=== PATIENT | male | born 1990 | race Hispanic/Latino ===

== ENCOUNTER 2016-11-24 04:32 | Observation (INO) | payer SELFPAY ==
[~2016-11-24] VITALS: Ht 154.9 cm; Wt 131.3 kg
[2016-11-24] VITALS (17 sets, daily range): BP systolic 120–149; BP diastolic 57–94; PULSE 79–113; RESP 16–30; O2SAT 91–98
[~2016-11-24 04:32] MED LIST: IBUP800T28 PO; OXYC1TAB24 PO
--- NOTE | 2016-11-24 05:17 | ED.REPORT ---
HPI-Abd Pain M Under 40 Date of Service Nov 24, 2016 ED Provider: Francisco Crain MD History of Present Illness: Harshad Nagel is a 26 year old obese man with an otherwise negative medical history who presents with a 5 hour history of RLQ abdominal pain that came on suddenly while he was asleep. He states that earlier today he was in his normal state of health, and that he had not eaten anything out of the orginary recently. He denies nausea, vomiting, diarrhea, or constipation. He describes the pain as very sharp and localized to the RLQ without radiation. Nursing Notes Stated Complaint: RIGHT SIDED ABDOMINAL PAIN Chief Complaint: Male Abdominal Pain Nursing Notes Reviewed: Yes Allergies: Coded Allergies: Penicillins (Verified Allergy, Unknown, 11/24/16) Scheduled PRN Ibuprofen (Ibuprofen) 800 Mg Tablet 800 MG PO TID PRN PRN For Pain oxyCODONE-Acetaminophen 5-325 mg (oxyCODONE-Acetaminophen 5-325 mg) 1 Each Tablet 1 TAB PO Q4H PRN PRN For Pain General Time Seen by MD: 05:05 Chief Complaint Abdominal pain Hx Obtained From: Patient Onset Occurred: 5 - 8 hours ago Symptom Duration: Since onset Progression since Onset: Unchanged Location: : Abdomen lower: RLQ Quality: Sharp Radiation: : Does not radiate Severity: Current: Moderate Severity: Maximum: Severe Recent Healthcare: No recent doctor visit Similar Sx Previous: No Past Medical History Past Medical History Denies Past Surgical History Denies Family History noncontributory Smoking History Never Smoker Social History Alcohol Use: "Social" Drug Use: Denies drug use Other Social History: Local resident Occupation lives by self Ambulatory Status Independent Review of Systems GI: Reports: Abdominal pain Physical Exam Physical Exam Notes: Gen: A/O x3 pleasant cooperative man in mild acute distress secondary to abdominal pain Neck: Large bull neck, no JVD, supple, full ROM HEENT: PERRL, EOMI, mucous membranes moist CV: RRR, no murmurs rubs or gallops Resp: Lungs CTA BL, no wheezing rales or rhonchi Abdomen: Obese, soft, tender to palpation in RLQ McBurney's point, no rebound tenderness, psoas and obturator sign negative, BS +4Q Extr: No cyanosis clubbing or edema Neuro: Cn 2-12 grossly intact, no focal neurologic deficit Initial Vital Signs Vital Signs (First) Date Time Temp Pulse Resp B/P Pulse Ox O2 Delivery O2 Flow Rate FiO2 11/24/16 04:36 36.7 94 16 146/93 97 Room Air Initial VS: Reviewed Interpretation & Diagnostics Lab Results Interpretation Result Diagram: 11/24/16 0530 Test 11/24/16 05:15 11/24/16 05:30 Hold Urine Received (Received) White Blood Count 16.8th/mm3 (3.8-10.1) Red Blood Count 5.53mil/mm3 (4.40-5.80) Hemoglobin 14.7g/dL (13.8-17.2) Hematocrit 44.3% (41.0-50.0) Mean Corpuscular Volume 80.1fL (81-100) Mean Corpuscular Hemoglobin 26.6pg (27.0-35.0) Mean Corpuscular Hemoglobin Concent 33.2% (32.0-37.0) Red Cell Distribution Width 14.4% (12.3-15.4) Platelet Count 287bil/L (150-400) Neutrophils (%) (Auto) 79.1% (40-74) Lymphocytes (%) (Auto) 13.2% (14-46) Monocytes (%) (Auto) 6.3% (4-12) Eosinophils (%) (Auto) 0.9% (0-5) Basophils (%) (Auto) 0.3% (0-3) Re-Eval/Medical Decision Med Decision/Clinical Course This is a patient with very focal RLQ abdominal pain with sudden onset concerning for acute appendicitis. Given his habitus an US is unlikely to reveal the relevant anatomy, thus we will await preliminary lab work and likely conduct an abdominal CT to evaluate for potential Appendix pathology. He is patient and in a tolerable amount of pain without actively seeking analgesia. CBC reveals significant leukocytosis with Neutrophilic shift, thus CT was ordered. Differential Diagnosis: Positive: Appendicitis Patient Discharge & Departure Primary Impression: Abdominal pain Abdominal location: right lower quadrant Qualified Code: R10.31 - Right lower quadrant pain Discharge Condition All VS Reviewed: Yes Condition: Stable Referrals: NOPCP (PCP) Care Transferred to: Dr. Crason Care Transferred at: 06:00 Attending Statement The patient was seen and examined together with Dr. Yobani Lacey and I agree with the history, exam and plan as outlined in the note above. Yobani Lacey DO Nov 24, 2016 05:10 Francisco Crain MD Nov 24, 2016 06:20
[2016-11-24 05:46] LABS: BASOPHILS % (AUTO) 0.3 % (0-3); EOSINOPHILS % (AUTO) 0.9 % (0-5); MONOCYTES % (AUTO) 6.3 % (4-12); Mean Corpuscular Hemoglobin 26.6 pg (27.0-35.0); Mean Corpuscular Volume 80.1 fL (81-100); NEUTROPHILS % (AUTO) 79.1 % (40-74); Platelet Count 287 bil/L (150-400)
[2016-11-24 06:12] LABS: Magnesium 1.9 mg/dL (1.6-2.6)
[2016-11-24 06:42] LABS: APPEARANCE,URINE CLEAR (CLEAR,HAZY); COLOR,URINE YELLOW (YELLOW); OCCULT BLOOD,URINE TRACE (NEGATIVE); UROBILINOGEN,URINE NORMAL (NORMAL)
[2016-11-24] MEDS ORDERED: Ondansetron 2 mg/mL 2 mL Inj IVPUSH PRN ×3 (07:10→13:25)
[2016-11-24] MEDS: HYDROmorphone 0.5 mg/0.5 mL iSecure Syringe IVPUSH PRN ×2 (07:17→09:40)
[2016-11-24] MEDS ORDERED: Rocuronium 10 mg/mL 5 mL Inj ONE (09:14)
[2016-11-24] MEDS ORDERED: Succinylcholine Chloride 20 mg/mL 5 mL Inj ONE (09:14)
[2016-11-24] MEDS ORDERED: Ondansetron 2 mg/mL 2 mL Inj ONE (09:14)
[2016-11-24] MEDS ORDERED: Neostigmine 1 mg/mL 10 mL Inj ONE (09:14)
[2016-11-24] MEDS ORDERED: Dexamethasone 4 mg/mL Inj ONE (09:14)
[2016-11-24] MEDS ORDERED: Glycopyrrolate 0.2 MG/ML 1mL Inj ONE (09:14)
[2016-11-24] MEDS ORDERED: Phenylephrine/NS-PF 100 mCg/mL 5 mL Syringe IVPUSH ONE (09:14)
[2016-11-24] MEDS ORDERED: Remifentanil 1 mg/3 mL Inj ONE (09:14)
[2016-11-24] MEDS ORDERED: Propofol 10,000 mCg/mL 20 mL Inj ONE (09:14)
[2016-11-24] MEDS ORDERED: fentaNYL-PF 50 mCg/mL 2 mL Inj ONE (09:14)
[2016-11-24] MEDS ORDERED: Ciprofloxacin Inj 400 MG in IV Premix 1 EACH IV ONE (09:20)
[2016-11-24] MEDS ORDERED: metroNIDAZOLE Inj 500 MG in IV Premix 1 EACH IV ONE (09:20)
--- NOTE | 2016-11-24 09:43 | DRSVH ---
PROCEDURE: CT ABDOMEN AND PELVIS WITH CONTRAST ([id number]) INDICATIONS: RLQ abdominal pain TECHNIQUE: After the administration of intravenous contrast, 5 mm thick sections acquired from the diaphragm to the symphysis. 5 mm coronal and sagittal reformats were acquired. For radiation dose reduction, the following was used: automated exposure control, adjustment of mA and/or kV according to patient siz e. COMPARISON: None. FINDINGS: Image quality: Excellent. ABDOMEN: Lung bases: Lung bases are clear. Heart size is normal. Solid organs: Liver is enlarged, measuring 21.8 cm craniocaudal, and demonstrates diffusely decrease d density, indicating fatty infiltration. Hepatosplenic enhancement is within normal limits. Gallblad jeanie is within normal limits. Biliary system is non dilated. Pancreas enhances normally. No right a drenal nodules. A 37 mm diameter left adrenal nodule is present, with Hounsfield units of 42.5 follow ing intravenous contrast administration, which is indeterminate. Kidneys demonstrate normal size and enhancement, without hydronephrosis. Peritoneum and bowel: Bowel loops demonstrate normal wall thickness and caliber. No free fluid or a ir. The appendix is mildly distended and fluid-filled, and demonstrates mild surrounding groundglass density. Nodes and vessels: No retroperitoneal or mesenteric adenopathy by size criteria. Aorta and inferior vena cava are normal in size. Miscellaneous: No ventral hernias. PELVIS: Genitourinary: Bladder wall thickness is normal. Miscellaneous: No inguinal hernias or adenopathy. Bones: No suspicious bony lesions. No vertebral body compression fractures. IMPRESSION: 1. Mild/early appendicitis. 2. Indeterminate left adrenal lesion, which could be further assessed with MRI, if clinically indicat ed. 3. Hepatic steatosis. Dictated by: Jt Young M.D. on 11/24/2016 at 9:38 Approved by: Jt Young M.D. on 11/24/2016 at 9:41
[2016-11-24] MEDS ORDERED: levoFLOXacin Inj 500 MG in IV Premix 1 EACH IV ONE (10:01)
[2016-11-24] MEDS ORDERED: HYDROmorphone 1 mg/mL Inj IVPUSH PRN ×2 (10:10→13:25)
[2016-11-24] MEDS ORDERED: Acetaminophen IV 1,000 MG in IV Premix 1 EACH IV PRN (10:10)
--- NOTE | 2016-11-24 10:47 | NUR ---
Arrival to 1002 Pt arrival at 1045. Pain rated 4/10 which is greatly improved from 12/10 he experienced in ER. Denies nausea. Plan for surgery at [address] Lin. Friends and family at bedside. Flagyl complete and Levofloxacin started. Consent is in front of chart and has not been signed.
--- NOTE | 2016-11-24 12:16 | NUR ---
To OR Pt taken to OR at 1145. Pt was sleeping comfortably prior to transport with Levofloxacin infusing. Family at bedside.
[2016-11-24] MEDS ORDERED: Bupivacaine-MPF 0.25%/EPI 30 mL Inj INJ ONE (12:18)
[2016-11-24] MEDS ORDERED: Lactated Ringer's 1,000 ML IV ONE ×2 (12:18→13:56)
--- NOTE | 2016-11-24 13:20 | HP ---
[address] [address] HISTORY AND PHYSICAL PATIENT: EMANUEL LOVETT : 1990 MR#: [id number] ADMIT: 11/24/2016 JOB ID: [id number] CORRECTED REPORT: DATE OF SERVICE: 11/24/2016 REASON FOR CONSULTATION: The patient is seen in consultation at the request of Dr. Yobani Lacey regarding further evaluation and management of possible acute appendicitis. HISTORY OF PRESENT ILLNESS: The patient is a 26-year-old obese but otherwise healthy man who presented to the emergency department with a complaint of right lower quadrant abdominal pain. He tells me that the pain began around midnight last night. He describes it as intense constant and dissimilar to anything he has experienced before. The pain was not accompanied by fevers, chills, nausea, vomiting, or night sweats. Because the pain persisted he presented to the emergency department, where he was found to have a leukocytosis of 16.8. CT scan of the abdomen and pelvis was obtained, which I have personally reviewed, and demonstrates a mildly distended and fluid-filled appendix with mild surrounding fat stranding. Incidentally, he is also noted to have a 3.7 cm left adrenal nodule. The patient denies any history of symptoms suggestive of pheochromocytoma. There is no family history suggestive of any MEN syndromes. PAST MEDICAL HISTORY: Obesity. MEDICATIONS: None. ALLERGIES: PENICILLIN. PAST SURGICAL HISTORY: He had a birthmark removed from his head. FAMILY HISTORY: Reviewed and unremarkable. SOCIAL HISTORY: He lives in [place]. He owns a variety of different companies. He does not smoke. He does not drink alcohol. He does not use any illicit drugs. PHYSICAL EXAMINATION: He has remained afebrile since his presentation. Currently temperature is 36.8 degrees, heart rate 79 beats per minute, blood pressure is 143/82, satting 95% on room air with respiratory rate 18 breaths per minute. In general he appears comfortable, in no acute distress. Cardiovascular: Regular rate and rhythm. No appreciated murmurs, rubs, gallops. Pulmonary: His lungs are clear to auscultation bilaterally. Vascular: He has no carotid bruit. Neck has no thyromegaly. Lymph: He has no cervical lymphadenopathy. GI: His abdomen is soft, nondistended. He has focal tenderness to palpation in the right lower quadrant. Extremities: Warm, without significant edema. Skin: Warm, without rash. Neuro: Grossly intact. Psych: Pleasant appropriate. LABORATORIES: His white blood cell count was 16.8, his hematocrit was 44.3, his creatinine was 0.66. LFTs are totally normal. Urine is unremarkable. IMAGING: CT scan is personally reviewed and is as per the HPI. ASSESSMENT AND PLAN: This is a 26-year-old man with what seems to be early acute appendicitis, as well as an incidental left adrenal mass. I discussed the diagnosis of appendicitis with the patient and my recommendation for laparoscopic appendectomy. The technical and convalescent aspects of surgery were reviewed, as well as the potential risks and complications. The patient agrees to proceed with surgery. I also briefly discussed his adrenal mass. He will require further evaluation of this as an outpatient. I also reviewed this with the anesthesiologist in the rare event that this could represent a pheochromocytoma. The patient be taken to the operating room imminently. Corrected by MEGA 12/09/16 at 11:46am Report type.
[2016-11-24] MEDS ORDERED: Lactated Ringer's 1,000 ML IV SCH (13:22)
[2016-11-24] MEDS ORDERED: Lactated Ringer's 500 ML IV PRN (13:22)
--- NOTE | 2016-11-24 13:22 | PCM.HPANE ---
Patient Data Surgeon Admitting Provider:Emory Lin MD Attending Provider:Emory Lin MD Primary Care Physician:Nopcp Other Provider: Reason for Visit APPY Ht/WT & BMI Height (Feet): 5 Height (Inches): 1.00 Weight (Kilograms): 131.300 Body Mass Index 54.65 Allergies Coded Allergies: Penicillins (Verified Allergy, Unknown, 11/24/16) Past Anesthesia History Anesthesia History: Denies:: Anesthesia Reactions Diabetes History Hx Diabetes?: No MRSA MRSA: No Medications Hypertension Medication: No Home Meds Incl Beta Marshall: No Active Scripts oxyCODONE-Acetaminophen 5-325 mg 1 Each Tablet1 Tab PO Q4H PRN For Pain #10 TABLET Ref 0 Prov:Hayley Hernandez MD 09/18/15 Ibuprofen 800 Mg [id number] Mg PO TID PRN For Pain #20 TABLET Ref 0 Prov:Hayley Hernandez MD 09/18/15 History History of ENT Problems?: No HEENT History: Denies:: Cataracts Glaucoma Sinus Problem Hx of Heart Problems?: Yes Cardiovascular History: Positive for:: Hypertension Denies:: Cardiac Surgery Chest Pain Congestive Heart Failure Edema Heart Murmur Irregular Heartbeat Pacemaker Thrombophlebitis Other Cardiac History: minor stroke r/t redbull per patient. NO residual symptoms of CVA. Endorses occasional palpitations and diaphoresis unrelated to activity. Hx of Respiratory Problem?: No Respiratory History: Denies:: Asthma COPD Chest Surgery Dyspnea Emphysema Hemoptysis Pneumonia Tuberculosis Hx Neurologic Problems?: Yes Neurological History: Positive for:: CVA (Possible CVA vs TIA on 04/17/14) Headaches (Hx of Migrane H/A's; last occured one month ago) Denies:: Alzheimer's Disease Dementia Dizziness Parkinson's Disease Seizures Hx of GI Problems?: No Other GI Pertinent History: currently pain on right stomach Hx of Problems?: No Other Pertinent History: Incidental adrenal lesion seen on CT. (LEFT) Male Hx: Denies:: Prostate Problems Scrotal Mass Testicular Surgery Hx Musculoskeletal Problems?: Yes Musculoskeletal History: Positive for:: Back Injury (previous fall off ladder with back injury.) Denies:: Joint Replacement Musculoskeletal Trauma Hx of Psycho/Social Problems?: No Psycho Social History: Denies:: Anxiety Bipolar Disorder Hx Depression Suicide Attempt Hx Surgeries?: Yes (Pt had surgery on his head when he was 5 years old) Hx Any Other Health Problems?: No Other History: Positive for:: Hospitalization Denies:: Cancer Endocrine Disease Thyroid Disease History Blood Transfusions: Positive for:: Accept Blood Products? Denies:: Blood Transfusions Hx Diabetes: No Hx Alcohol Use: NoHx Substance Use: No Smoking Status: Never Smoker Have You Smoked inLast 12 mo: No Stop/Bang Treated for Sleep Apnea?: No Do You Have a CPAP Machine?: No S-Snoring: Do You Snore Loudly: Yes T-Tired: feel tired, fatigued: No P-Blood Pressure: treated: No B- Body Mass Index > 35 kg/m2: Yes A- Age over 50: No N- Neck Large Circumference: Yes G- Gender Male: Yes HELIO Risk Assessment: High Risk, =/>3 Yes Risk Assessment Category Category 1A: Patient has history of documented sleep apnea, and HAS NOT received any narcotic, sedative or anesthesia administration during this stay. Category 1B: Patient has history of documented sleep apnea, and HAS received any narcotic , sedative or anesthesia administration during this stay Category 2: Patient has SUSPECTED Obstructive Sleep Apnea, and HAS received any narcotic , sedative or anesthesia administration during this stay. Category 3: Patient has SUSPECTED Obstructive Sleep Apnea and HAS NOT received narcotic, sedative or anesthesia administration during this stay. Category 4: Outpatient in Procedural Areas with known sleep apnea or who screen positive for High Risk via the STOP/BANG questionnaire. Exam Exam Vital Signs Vital Signs Date Time Temp Pulse Resp B/P Pulse Ox O2 Delivery O2 Flow Rate FiO2 11/24/16 10:37 36.8 79 18 143/82 95 Room Air 11/24/16 10:10 36.7 94 18 131/65 97 Room Air 11/24/16 07:43 94 18 131/65 97 Room Air 11/24/16 04:36 36.7 94 16 146/93 97 Room Air General Appearance: Alert, Oriented X3, Cooperative, No Acute Distress HEENT/AIRWAY: MP 2 Lungs: Clear to Auscultation, Normal Air Movement Heart: Exam Unremarkable, Regular Rate/Rhythm, No Murmurs/Rubs/Gallops Meds/Labs/Diagnostics Admission Meds Current Medications Ketorolac Tromethamine 30 mg 30 mg ONCE ONCE IVPUSH Last administered on t 07:17; Start 11/24/16 at 07:10; Stop 11/24/16 at 07:11; Status DC Metronidazole/ Sodium Chloride 500 mg/Premix 100 ml @ 200 mls/hr ONCE ONCE IV Last administered on 11/24/16 09:40; Start 11/24/16 at 09:20; Stop 11/24/16 at 09:49; Status DC Levofloxacin/ Dextrose/Premix (Levaquin Inj/IV Premix) 100 ml @ 100 mls/hr ONCE ONCE IV Last administered on 11/24/16 10:43; Start 11/24/16 at 10:01; Stop 11/24/16 at 11:00 Labs Test 11/24/16 05:15 11/24/16 05:30 Urine Color Yellow (YELLOW) Urine Appearance Clear (CLEAR,HAZY) Urine pH 7.0 (5.0-8.0) Urine Specific Henry 1.020 (1.003-1.035) Urine Protein Negativemg/dL (NEG,TRACE) Urine Glucose (UA) Negativemg/dL (NEGATIVE) Urine Ketones Negativemg/dL (NEGATIVE) Urine Occult Blood Trace (NEGATIVE) Urine Nitrite Negative (NEGATIVE) Urine Bilirubin Negative (NEGATIVE) Urine Urobilinogen Normalmg/dL (NORMAL) Urine Leukocyte Esterase Negative (NEGATIVE) Urine RBC 0-2/hpf (0-2) Urine WBC 0-5/hpf (0-5) Urine Epithelial Cells Occasional/hpf (NONE-MOD) Urine Crystals None seen (NONE SEEN) Urine Bacteria None/hpf (NONE-FEW) Urine Hyaline Casts None/lpf (NONE) Urine Granular Casts None seen (NONE SEEN) Urine Waxy Casts None seen (NONE SEEN) Urine Red Blood Cell Casts None seen (NONE SEEN) Urine White Blood Cell Casts None seen (NONE SEEN) Urine Mucus Present (None Seen) Urine Trichomonas None seen (NONE SEEN) Urine Yeast None (NONE SEEN) Urine Culture Reflexed Not indicated Hold Urine Received (Received) White Blood Count 16.8th/mm3 (3.8-10.1) Red Blood Count 5.53mil/mm3 (4.40-5.80) Hemoglobin 14.7g/dL (13.8-17.2) Hematocrit 44.3% (41.0-50.0) Mean Corpuscular Volume 80.1fL (81-100) Mean Corpuscular Hemoglobin 26.6pg (27.0-35.0) Mean Corpuscular Hemoglobin Concent 33.2% (32.0-37.0) Red Cell Distribution Width 14.4% (12.3-15.4) Platelet Count 287bil/L (150-400) Neutrophils (%) (Auto) 79.1% (40-74) Lymphocytes (%) (Auto) 13.2% (14-46) Monocytes (%) (Auto) 6.3% (4-12) Eosinophils (%) (Auto) 0.9% (0-5) Basophils (%) (Auto) 0.3% (0-3) Sodium Level 138mEq/L (134-144) Potassium Level 3.6mEq/L (3.5-5.2) Chloride Level 101mEq/L (97-108) Carbon Dioxide Level 22mmol/L (18-29) Blood Urea Nitrogen 12mg/dL (6-20) Creatinine 0.66mg/dL (0.76-1.27) Estimat Glomerular Filtration Rate 153mL/min (>59) Glucose Level 114mg/dL (60-99) Calcium Level 8.3mg/dL (8.5-10.1) Magnesium Level 1.9mg/dL (1.6-2.6) Total Bilirubin 0.3mg/dL (0.0-1.2) Aspartate Amino Transf (AST/SGOT) 24U/L (0-50) Alanine Aminotransferase (ALT/SGPT) 36U/L (0-44) Alkaline Phosphatase 73U/L (25-150) Total Protein 7.5g/dL (6.4-8.4) Albumin 4.1g/dL (3.4-5.0) Lipase 19U/L (13-60) Hold [place] Top Tube Received (Received) Plan Impression Patient chart reviewed, patient interviewed and anesthestic plan with risks, benefits, and alternatives discussed, and informed consent obtained. ASA Physical Status: ASA3 Plus Emergency Anesthetic Support Modalities: [place] Scope (available) Anesthetic Plan: GA Bene/Risks/Altern/Consents: Yes HP Complete Prior to Induction: Yes Rei Paulino MD Nov 24, 2016 11:00
[2016-11-24] MEDS ORDERED: fentaNYL-PF 50 mCg/mL 2 mL Inj IVPUSH PRN (13:25)
[2016-11-24] MEDS ORDERED: Atropine 0.4 mg/mL Inj IVPUSH PRN (13:25)
[2016-11-24] MEDS ORDERED: Phenylephrine 10,000 mCg/mL Inj IVPUSH PRN (13:25)
[2016-11-24] MEDS ORDERED: Labetalol 5 mg/mL 4 mL Inj IV PRN (13:25)
[2016-11-24] MEDS ORDERED: EPHEDrine Sulfate 50 mg/mL Inj IVPUSH PRN (13:25)
[2016-11-24] MEDS ORDERED: MetoCLOpramide 5 mg/mL 2 mL Inj IVPUSH PRN (13:25)
[2016-11-24] MEDS ORDERED: hydrALAZINE 20 mg/mL Inj IVPUSH PRN (13:25)
--- NOTE | 2016-11-24 14:19 | PCM.ANEP1 ---
Post Anesthesia Phase 1 PACU Phase 1 Assessment Vital Signs Vital Signs Date Time Temp Pulse Resp B/P Pulse Ox O2 Delivery O2 Flow Rate FiO2 11/24/16 14:10 36.6 83 24 126/59 96 Simple Mask 8 11/24/16 10:37 36.8 79 18 143/82 95 Room Air 11/24/16 10:10 36.7 94 18 131/65 97 Room Air 11/24/16 07:43 94 18 131/65 97 Room Air Level of Alertness: Awake, talking MANN's with Equal Strength: Yes Pain: No Nausea or Vomiting: No Oxygen Delivery: Simple Mask Lungs: Clear to Auscultation, Normal Air Movement Rei Paulino MD Nov 24, 2016 14:19
--- NOTE | 2016-11-24 14:32 | PCM.ANEP2 ---
Post Anesthesia Evaluation ASA/CMS Post Anesthesia VS in Patient's Normal Range?: Yes Resp Stable; Airway Patent?: Yes CV Function & Hydration Stable: Yes Mental Status Recovered?: Yes Pain control Satisfactory?: Yes N/V Control Satisfactory?: Yes Rei Paulino MD Nov 24, 2016 14:32
[2016-11-24] MEDS ORDERED: Sodium Chloride LOK Flush 10 mL Syringe IVFLUSH PRN (16:15)
--- NOTE | 2016-11-24 16:23 | NUR ---
Return from OR Pt returned to 1002 at 1530. Alert and oriented x3, ambulating with steady gait to BR, voiding spontaneously. 3 lap sites are CDI with gauze and tegaderm. Placed on CPOx for high risk HELIO, 96% on RA. Family at bedside. Will continue to monitor closely.
--- NOTE | 2016-11-24 17:39 | OP ---
[address] [address] OPERATIVE REPORT PATIENT: EMANUEL LOVETT : 1990 MR#: [id number] ADMIT: 11/24/2016 JOB ID: [id number] DATE OF SURGERY: 11/24/2016 ANESTHESIA: General. PREOPERATIVE DIAGNOSIS(ES): 1. Acute appendicitis. 2. Left adrenal mass. POSTOPERATIVE DIAGNOSIS(ES): 1. Acute appendicitis (non perforated). 2. Left adrenal mass. OPERATION: Laparoscopic appendectomy. SURGEON: Emory Lin MD CHEF TEACHER: Eliza Hammond PA-C (the family and divorce legal assistant was required for the safe and timely completion of the case). COMPLICATIONS: None. ESTIMATED BLOOD LOSS: Minimal. CONDITION: Satisfactory. SPECIMEN: Appendix. FINDINGS: The appendix was clearly inflamed but non perforated. INDICATIONS/SIGNIFICANT HISTORY: The patient is a 26-year-old man who presented to the emergency department this morning with history and physical findings compatible with a diagnosis of appendicitis. A CT scan was supportive of early acute appendicitis. He was also incidentally found to have a 3.8 cm left adrenal mass. OPERATIVE TECHNIQUE: The patient was taken to the operating room and placed in supine position. General anesthesia was administered. He was already on broad-spectrum antibiotics. The abdomen was prepped and draped in a standard surgical fashion and a procedural pause was performed. Entry was gained to the abdomen through a small supraumbilical incision using a 5 mm Optiview trocar. Pneumoperitoneum was achieved without complication. Local anesthetic was injected, followed by insertion of 5 mm ports in the suprapubic region as well as one in the left lower quadrant. Eventually the umbilical port was then up-sized to an 11 mm port to accommodate the stapler. The appendix was grasped and a small window made in the mesoappendix at the base. The base of the appendix was transected using a FELICIA 45 blue load. The mesoappendix was then taken with a white load. The appendix was placed in an EndoCatch bag and removed through the umbilical port site. The fascial incision had to be extended a little bit to accommodate the appendix. This was closed using 0 PDS suture under laparoscopic visualization. Pneumoperitoneum was released and the remaining ports removed. The entire procedure was well tolerated, without complication.
[2016-11-25 00:42] VITALS: BP 149/81; PULSE 101; RESP 18; O2SAT 97
[2016-11-25 04:49] VITALS: BP 148/80; PULSE 80; RESP 20; O2SAT 97
--- NOTE | 2016-11-25 05:29 | NUR ---
Activity Patient states minimal pain during initial assessment. Pain in shoulder area is more significant than abdomen. Acetaminophen administered. Patient very concerned about food. Asked for snacks throughout the beginning of shift. Son brought food up from vending machine. Patient found walking around outside of unit. Patient was asked to only stay in unit hallway. HR elevated intermittently to 115. Patient in bed sleeping at 0200. VSS. Call light within reach. Care continues.
--- NOTE | 2016-11-25 08:18 | PCM.DISURG ---
Surgical Discharge Instruction Date of Service Nov 25, 2016 Dates of Hospitalization Date of Hospital Admission Nov 24, 2016 at 09:46 Providers Admitting Physician: Emory Lin MD Primary Care Physician: Nopcp Attending Physician: Emory Lin MD Discharge Diagnosis Discharge Diagnosis Acute appendicitis Left adrenal mass Diet Discharge Diet: No restrictions Activity Discharge Activity-General: No restrictions, Be up and about, Balance rest and activity Dressing and Incisional Care Dressing Care: Allow Steri Stripes to fall off Hygiene: May shower, NO bathtub, hot tub or whirlpool Follow Up Plan Follow Up Plan Follow up with Riley in 7-10 days Call your provider for: Fever, Chills, Increasing abdominal pain, Nausea, Vomiting Emory Lin MD Nov 25, 2016 08:18
[2016-11-25] MEDS ORDERED: Acetaminophen PO (08:19)
[2016-11-25] MEDS ORDERED: Polyethylene Glycol (PEG) 17 Gm Powder PO SCH (08:30)
--- NOTE | 2016-11-25 09:20 | NUR ---
Discharge Pt DC home via private vehicle with friend. Pain well controlled this morning and no prescription medications given for DC. 3 lap sites with steri-strips, minimal old drainage on lower dressing; pt understands he can remove outer dressing and shower today but will allow steri-strips to fall off on their own and will schedule follow up appointment in 7-[address] Lin. All belongings with pt and questions answered.
--- NOTE | 2016-11-25 10:00 | PROG NOTE ---
[address] [address] PROGRESS NOTE PATIENT: EMANUEL LOVETT : 1990 MR#: [id number] ADMIT: 11/24/2016 JOB ID: [id number] DATE: 11/25/2016 SUBJECTIVE: The patient is seen postoperative day one from his laparoscopic appendectomy for acute nonperforated appendicitis. The patient tells me he is doing great. He is having no more abdominal pain. He did have some right shoulder pain overnight but that has resolved. He has remained afebrile. He had a couple of brief episodes of limited tachycardia overnight. This morning he is hemodynamically normal. He is up and out of bed walking around comfortably. His abdomen is inspected. His dressings are clean, dry and intact. His abdomen is soft, nontender, nondistended. He had tolerated a good amount of p.o. intake both yesterday and overnight. ASSESSMENT AND PLAN: This is a 26-year-old man postoperative day one from laparoscopic appendectomy for acute nonperforated appendicitis. The patient is doing well. He can go home. He is using only Tylenol for pain control. He will follow up with me in 7-[address] scan upon admission also demonstrated a left adrenal nodule. I will evaluate this on an outpatient basis.
--- NOTE | 2016-11-25 10:04 | NUR ---
Social Work - Screening/Discharge Data: Pt is a 26 y/o male from [facility] who was admitted for Appy on 11/25/2015. Insurance is self-pay and no PCP is listed. Pt has been up independent in room. Per nurse note pt had surgery and will discharge to home today via friend in POV with no needs. A: Pt who is independent at baseline. P: Pt to discharge home with no needs. MIREYA Liao
--- NOTE | 2016-11-26 11:14 | PATH ---
SURGICAL PATHOLOGY Attending Physician:Emory Lin MD CASE STATUS: Signed Out PATIENT NAME: EMANUEL LOVETT PID: [id number] : 1990 DATE COLLECTED:11/24/2016 00:00 SPECIMEN: Appendix CLINICAL HISTORY: APPENDICITIS 1). APPENDIX FINAL DIAGNOSIS: 1.APPENDIX: ACUTE SUPPURATIVE APPENDICITIS AND PERITONITIS. NO EVIDENCE OF MALIGNANCY. ICD10 CODE K35.80 GROSS DESCRIPTION: Received in formalin, labeled with the patient' s name and "appendix", is one appendix with an abundance of attached yellow, fatty tissue. The entire fragment measures 7.0 x 2.5 x 1.5 cm. The serosal surface is smooth and glistening. Sectioning reveals the wall to measure 0.1 cm in thickness and a lumen distended to 0.4 cm in diameter and filled with pink-christian, creamy substance. Cheese Production Supervisor sections are submitted in one cassette. ([id number]) MICRO DESCRIPTION: See diagnosis. ICD-9 CODES: CPT CODES: 1: 58823 Electronically Signed Out Puneet Anne MD [facility] [address], [place] [address] Technical component performed at [facility], [address] [place] [address] Ave[address], [place], [address]
--- NOTE | 2016-12-01 09:18 | PCM.DC.SUR ---
Discharge Summary Date of Hospital Admission: Nov 24, 2016 at 09:46 Date of Operation(s): 11/24/2016 Date of Discharge: 11/25/2016 Diagnosis at Time of Discharge 1. Acute appendicitis, status post laparoscopic appendectomy 2. Left adrenal mass Problems: (1) Acute appendicitis Status: Resolved ICD Code: K35.80 Operation Laparoscopic appendectomy Brief History and Physical: Patient is a 26-year-old man who presented to the emergency department on the morning of admission with history and physical findings compatible with a diagnosis of appendicitis. A CT scan was supportive of early acute appendicitis. He was also incidentally found to have a 3.8 cm left adrenal mass. Hospital Course: Patient was admitted, consented and brought to the operating room where he underwent the above-mentioned operation without complication. On postop day 1 he was doing well, his pain was well-controlled with just Tylenol, he was tolerating regular diet and voiding without difficulty. He did have limited episode of tachycardia overnight, however in the morning he was felt to be hemodynamically stable. He was felt to be medically and surgically stable for discharge to home. His left adrenal mass that was incidentally found on a CT scan was to be evaluated as an outpatient by Dr. Lin. Pathology: Final pathology: Appendix: Acute suppurative appendicitis with peritonitis, no evidence of malignancy. Disposition: Discharge to home in stable condition Follow-up Plan: Follow-up in the surgical clinic with Dr. Lin in 7-10 days for general postop and further evaluation of left adrenal mass. ([Acetaminophen]) 325 MG TABLET 650 MG PO Q6H PRN PRN For Fever Ibuprofen (Ibuprofen) 800 Mg Tablet 800 MG PO TID PRN PRN For Pain copies to: Emory Lin MD, Erin D PAC Dec 01, 2016 09:18
== END 2016-11-25 09:15 | disposition home or self-care (01) ==
LOC: SED 04:32 → OSC 09:46
PROVIDERS: ADMIT General Practice; ATTEND General Practice
DX: K35.80 Unspecified acute appendicitis (principal); K76.9 Liver disease, unspecified; D72.829 Elevated white blood cell count, unspecified; I10 Essential (primary) hypertension; E66.01 Morbid (severe) obesity due to excess calories; Z86.73 Personal history of transient ischemic attack (TIA), and cerebral infarction without residual deficits; Z68.43 Body mass index [BMI] 50.0-59.9, adult; Z88.0 Allergy status to penicillin
CPT/HCPCS: 36415; 44970; 74177; 80053; 81000; 83690; 83735; 85025; 94640; 96365; 96366; 96367; 96375; 96376; 99285; G0378; J0330; J1100; J1170; J1885; J2250; J2370; J2405; J2710; J3010; J3490; J7120; Q9967